=== PATIENT | female | born 1975 | race Caucasian/White ===

== ENCOUNTER 2016-07-06 12:24 | Day surgery (SDC) | payer BC ==
[2016-07-06 13:15] VITALS: RESP 16
[2016-07-06] MEDS ORDERED: IODIXANOL 320 MG/ML 100 ML IV ONE (13:58)
--- NOTE | 2016-07-06 14:10 | IR ---
Fluoroscopic portogram([facility]). HISTORY: Device malfunction. The patient presented to the CVL with a Claudio needle within the port. Preliminary fluoroscopy demonst rated the catheter to be intact. IMPRESSION: 1. No obstruction or extravasation. See above.
[2016-07-06 14:30] VITALS: BP 112/66; PULSE 86
== END 2016-07-06 14:27 | disposition home or self-care (01) ==
LOC: CATHCVL 12:24
PROVIDERS: ATTEND Radiology Diagnostic Radiology
DX: T82.848A Pain due to vascular prosthetic devices, implants and grafts, initial encounter (principal); T82.514A Breakdown (mechanical) of infusion catheter, initial encounter; C50.311 Malignant neoplasm of lower-inner quadrant of right female breast; Z17.0 Estrogen receptor positive status [ER+]; Z90.13 Acquired absence of bilateral breasts and nipples; R19.7 Diarrhea, unspecified; R11.2 Nausea with vomiting, unspecified; E86.0 Dehydration; Z79.891 Long term (current) use of opiate analgesic; Z79.899 Other long term (current) drug therapy
CPT/HCPCS: 36598; 81025; Q9967

== ENCOUNTER → 2016-09-04 | Outpatient (CLI) | payer BC ==
--- NOTE | 2016-09-05 11:17 | ECHOF ---
Referral Reason:C50.311 breast ca Z01.818 herceptin MEASUREMENTS -------- HEIGHT: 165.1 cm WEIGHT: 52.2 kg BP: 112/72 RVIDd: 2.0 cm (< 3.3) IVSd: 1.0 cm (0.6 - 1.1) LVIDd: 3.6 cm (3.9 - 5.3) LVPWd: 0.9 cm (0.6 - 1.1) IVSs: 1.2 cm LVIDs: 2.7 cm LVPWs: 1.3 cm LA Diam: 2.2 cm (2.7 - 3.8) LAESV Index (A-L): 10.83 ml/m Ao Diam: 2.6 cm (2.0 - 3.7) AV Cusp: 1.9 cm (1.5 - 2.6) MV EXCURSION: 18.742 mm (> 18.000) MV EF SLOPE: 159 mm/s (70 - 150) EPSS: 0.7 cm MV E [place]: 1.06 m/s MV DecT: 226 ms MV A [place]: 0.53 m/s MV E/A Ratio: 1.99 RAP: 5.00 mmHg RVSP: 20.32 mmHg FINDINGS -------- Sinus rhythm. This was a technically good study. The left ventricular size is normal. Left ventricular wall thickness is normal. Overall left ventricular systolic function is normal with, an EF between 55 - 60 %. The right ventricle is normal in size and function. Normal LA size by volume 22+/-6 ml/m2. The right atrium is normal in size. Aortic valve is trileaflet and is mildly thickened. The mitral valve leaflets are mildly thickened. Mild mitral annular calcification present. Mild tricuspid regurgitation present. Right ventricular systolic pressure is normal at < 35 mmHg. Trace/mild (physiologic) pulmonic regurgitation. The aortic root, ascending aorta and aortic arch are normal. The inferior vena cava is mildly dilated. The pericardium is normal. CONCLUSIONS -------- 1. Sinus rhythm. 2. The mitral valve leaflets are mildly thickened. 3. Mild mitral annular calcification present. 4. Mild tricuspid regurgitation present. 5. Right ventricular systolic pressure is normal at < 35 mmHg. 6. Trace/mild (physiologic) pulmonic regurgitation. 7. The aortic root, ascending aorta and aortic arch are normal. 8. The inferior vena cava is mildly dilated. 9. The pericardium is normal. 10. This was a technically good study. 11. The left ventricular size is normal. 12. Left ventricular wall thickness is normal. 13. Overall left ventricular systolic function is normal with, an EF between 55 - 60 %. 14. The right ventricle is normal in size and function. 15. Normal LA size by volume 22+/-6 ml/m2. 16. The right atrium is normal in size. 17. Aortic valve is trileaflet and is mildly thickened. WIND TURBINE MACHINIST: Ginger Wilson RDCS
== END | disposition home or self-care (01) ==
LOC: RADECHMAIN 13:50
PROVIDERS: ATTEND Internal Medicine Hematology & Oncology
DX: Z01.818 Encounter for other preprocedural examination (principal); I05.8 Other rheumatic mitral valve diseases; I35.8 Other nonrheumatic aortic valve disorders; I07.1 Rheumatic tricuspid insufficiency; I37.1 Nonrheumatic pulmonary valve insufficiency; C50.919 Malignant neoplasm of unspecified site of unspecified female breast
CPT/HCPCS: 93306

== ENCOUNTER → 2017-02-01 | Outpatient (CLI) | payer BC ==
--- NOTE | 2017-02-02 12:00 | ECHOF ---
Referral Reason:Chemo Exposure Z01.818 Breast CA C50.311 MEASUREMENTS -------- HEIGHT: 165.1 cm WEIGHT: 50.8 kg BP: RVIDd: 2.3 cm (< 3.3) IVSd: 0.9 cm (0.6 - 1.1) LVIDd: 4.0 cm (3.9 - 5.3) LVPWd: 1.0 cm (0.6 - 1.1) IVSs: 1.2 cm LVIDs: 3.1 cm LVPWs: 1.1 cm LAESV Index (A-L): 10.20 ml/m Ao Diam: 2.5 cm (2.0 - 3.7) AV Cusp: 1.8 cm (1.5 - 2.6) LA Diam: 2.1 cm (2.7 - 3.8) MV EXCURSION: 12.972 mm (> 18.000) MV EF SLOPE: 128 mm/s (70 - 150) EPSS: 0.5 cm MV E [place]: 0.82 m/s MV DecT: 289 ms MV A [place]: 0.62 m/s MV E/A Ratio: 1.33 RAP: 5.00 mmHg RVSP: 9.49 mmHg FINDINGS -------- Sinus rhythm. This was a technically adequate study. The left ventricular size is normal. Left ventricular wall thickness is normal. Overall left vent ricular systolic function is low-normal with, an EF between 50 - 55 %. The right ventricle is normal in size and function. Normal LA size by volume 22+/-6 ml/m2. The right atrium is normal in size. The aortic valve is trileaflet, and appears structurally normal. No aortic stenosis or regurgitation. Mild mitral annular calcification present. There is trace to mild mitral regurgitation. Trace tricuspid regurgitation present. Right ventricular systolic pressure is normal at < 35 mmHg. There is no evidence of pulmonary hypertension. The pulmonic valve was not well visualized. The aortic root size is normal. Normal inferior vena cava with normal inspiratory collapse consistent with estimated right atrial pre ssure of 5 mmHg. The pericardium is normal. There is no pericardial effusion. CONCLUSIONS -------- 1. Sinus rhythm. 2. This was a technically adequate study. 3. The left ventricular size is normal. 4. Left ventricular wall thickness is normal. 5. Overall left ventricular systolic function is low-normal with, an EF between 50 - 55 %. 6. Normal LA size by volume 22+/-6 ml/m2. 7. The aortic valve is trileaflet, and appears structurally normal. No aortic stenosis or regurgitati on. 8. Mild mitral annular calcification present. 9. There is trace to mild mitral regurgitation. 10. Trace tricuspid regurgitation present. 11. Right ventricular systolic pressure is normal at < 35 mmHg. 12. There is no evidence of pulmonary hypertension. 13. The pulmonic valve was not well visualized. 14. The aortic root size is normal. 15. There is no pericardial effusion. ETHICS MANAGER: Nestor Sampson RDCS
== END ==
LOC: RADECHMAIN 12:58
PROVIDERS: ATTEND Internal Medicine Hematology & Oncology
DX: Z01.818 Encounter for other preprocedural examination (principal); C50.311 Malignant neoplasm of lower-inner quadrant of right female breast
CPT/HCPCS: 93306

== ENCOUNTER → 2018-06-10 | Outpatient (CLI) | payer BC ==
--- NOTE | 2018-06-10 16:44 | US ---
EXAMINATION TYPE: US venous doppler duplex LE RT DATE OF EXAM: 06/10/2018 4:18 PM COMPARISON: NONE CLINICAL HISTORY: Rt Leg Pain M79.604. Pain right lower extremity x 2 weeks. No Hx of DVT. SIDE PERFORMED: Right TECHNIQUE: The lower extremity deep venous system is examined utilizing real time linear array sonog karyna with graded compression, doppler sonography and color-flow sonography. VESSELS IMAGED: External Iliac Vein (EIV) Common Femoral Vein Deep Femoral Vein Greater Saphenous Vein * Femoral Vein Popliteal Vein Small Saphenous Vein * Proximal Calf Veins (* superficial vessels) Grayscale, color doppler, spectral doppler imaging performed of the deep veins of the right lower ext remity. There is normal flow, compressibility, vascular waveforms. Right Leg: No evidence of DVT in the right lower extremity. IMPRESSION: No sonographic evidence of deep venous thrombosis within the right lower extremity.
--- NOTE | 2018-06-11 07:26 | XR ---
EXAMINATION TYPE: XR chest 2V DATE OF EXAM: 06/10/2018 COMPARISON: NONE HISTORY: Cough for 2 months TECHNIQUE: Frontal and lateral views of the chest are obtained. FINDINGS: There is no focal air space opacity, pleural effusion, or pneumothorax seen. The cardiac silhouette size is within normal limits. The osseous structures are intact. IMPRESSION: No acute cardiopulmonary process.
== END ==
LOC: RADUSWWP 15:37
PROVIDERS: ATTEND Physician Assistant
DX: M79.604 Pain in right leg (principal); R05 Cough
CPT/HCPCS: 71046

== ENCOUNTER → 2018-09-09 | Outpatient (CLI) | payer BC ==
--- NOTE | 2018-09-09 23:02 | MR ---
MRI CERVICAL SPINE: CLINICAL HISTORY: Breast cancer and radiculopathy per order. Headache with neck pain causing pain and numbness into right arm and fingers for 1 year per patient. TECHNIQUE: Multiplanar, multisequence imaging of the cervical spine is performed without and with IV contrast, 6 cc of gadolinium was given intravenously. COMPARISON: None. FINDINGS: Sagittal images of the cervical spine show the craniocervical junction to appear within nor mal limits. The cervical and upper thoracic spinal cord is normal in course, caliber, and signal. V ertebral alignment is anatomic. The vertebral body and intravertebral disk heights are normal. The bone marrow signal intensity is within normal limits. No suspicious postcontrast enhancement is seen. Axial images at C2-C3 level are felt within normal limits. Axial images at C3-C4 level show right foraminal spur disc complex causing asymmetric mild to moderat e right-sided neural foraminal narrowing axial image 36 confirm sagittal image 10. There is slightly lobulated posterior disc protrusion mildly facing anterolateral thecal sac. Axial images at C4-C5 level show uncovertebral facet degenerative changes causing mild to minimal lef t-sided neural foraminal narrowing. Axial images at C5-C6 level show tiny central disc protrusion mildly effacing the anterior thecal sac . Axial images at C6-C7 level show left paracentral disc protrusion effacing the anterior thecal sac, b ilateral neural foramina are patent. Axial images at C7-T1 level are felt within normal limits. IMPRESSION: Some mild multilevel degenerative changes as seen above. No suspicious enhancement or chicho picious osseous lesions to suggest metastatic malignancy.
== END | disposition home or self-care (01) ==
LOC: RADMRIMAIN 20:36
PROVIDERS: ATTEND Internal Medicine Hematology & Oncology
DX: M47.22 Other spondylosis with radiculopathy, cervical region (principal); C50.311 Malignant neoplasm of lower-inner quadrant of right female breast
CPT/HCPCS: 72156; A9585

== ENCOUNTER → 2020-11-23 | Outpatient (CLI) | payer OTHER ==
--- NOTE | 2020-11-23 11:44 | USB ---
Reason for exam: clinical finding. History: Patient has history of breast cancer at age 40. Malignant MG stereo VAD BX RT of the right breast, January 13, 2016. Taking hormonal contraceptives for 10 years beginning at age 30. Physical Findings: Nurse Summary: left palpable, ridge on implant (nurse dw). US Breast Limited BILAT Technologist: Amie Chavarria Left limited breast ultrasound including focal area of concern, retroareolar and axilla demonstrates a 1.5 x 1.5 x 0.5cm oval, solid, hypoechoic lesion at 1 o'clock. Right complete breast ultrasound includes all four quadrants, the retroareolar region and axilla. Finding demonstrates no cystic or solid lesion seen. These results were verbally communicated with the patient and result sheet given to the patient on 11/23/20. ASSESSMENT: Suspicious, BI-RAD 4 RECOMMENDATION: Surgical consultation of the left breast. Manage on a clinical basis with regard to nipple discharge. Biopsy recommended buy surgical palpation.
== END | disposition home or self-care (01) ==
LOC: RADUSWWP 07:36
PROVIDERS: ATTEND Internal Medicine Hematology & Oncology
DX: N64.89 Other specified disorders of breast (principal); Z79.3 Long term (current) use of hormonal contraceptives; Z85.3 Personal history of malignant neoplasm of breast

== ENCOUNTER 2020-12-31 06:33 | Day surgery (SDC) | payer OTHER ==
[~2020-12-31 06:33] MED LIST: ACETAMINOPHEN TAB 500 MG TAB PO PRN; DEXAMETHASONE SOD PHOSPHATE 4 MG/ML 1 ML VIAL IV ONE; HEPARIN SODIUM,PORCINE/PF 5,000 UNIT/0.5 ML SYRINGE SQ PRN; LACTATED RINGERS 1,000 ML IV SCH; MIDAZOLAM 2 MG/2 ML VIAL IV PRN; ONDANSETRON 4 MG/2 ML VIAL IVP ONE; SCOPOLAMINE 1.5MG/72HR PATCH TRANSDERM ONE
[2020-12-31] MEDS ORDERED: HYDROmorphone 0.5 MG/0.5 ML SYRINGE IVP PRN (07:00)
[2020-12-31 07:15] VITALS: RESP 16
[2020-12-31] MEDS ORDERED: LIDOCAINE 1% (10MG/ML) FOR IV START INTRADERMA ONE (07:21)
[2020-12-31] MEDS ORDERED: ePHEDrine SULFATE/0.9% NACL/PF 50 MG/5 ML SYRINGE IV ONE (07:45)
[2020-12-31] MEDS ORDERED: PROPOFOL 10 MG/ML 20 ML VIAL IV ONE (07:45)
[2020-12-31] MEDS ORDERED: MIDAZOLAM 2 MG/2 ML VIAL ONE (07:45)
[2020-12-31] MEDS ORDERED: LIDOCAINE 1% INJ 10MG/ML (20 ML MDV) ONE (07:45)
[2020-12-31] MEDS ORDERED: fentaNYL (PF) 50 MCG/ML 2 ML AMP ONE (07:45)
[2020-12-31] MEDS ORDERED: BUPIVACAINE (PF) 0.25% 30 ML VIAL SQ ONE ×2 (08:09→08:21)
[2020-12-31] MEDS ORDERED: ACETAMINOPHEN TAB 325 MG TAB PO PRN (08:32)
[2020-12-31] MEDS ORDERED: NALOXONE 0.4 MG/ML 1 ML VIAL IV PRN (08:32)
--- NOTE | 2020-12-31 08:35 | P.OP ---
Date of Procedure: 12/31/20 Procedure(s) Performed: PREOPERATIVE DIAGNOSIS: Left breast mass POSTOPERATIVE DIAGNOSIS: Same PROCEDURE: Biopsy left breast mass SURGEON: Calin EBL: 2 mL ANESTHESIA: Gen. COMPLICATIONS: None OPERATIVE PROCEDURE: Patient placed in the supine position. The patient was placed under general anesthesia. The left breast was prepped and draped sterilely. The patient had a palpable mass at 2 to 3:00. A horizontal incision was made overlying the palpable mass. Dissection through the subcutaneous tissues took place. The mass was carefully dissected using both sharp dissection and blunt dissection. The mass appeared to be a fold in the capsule surrounding her implant. As we partially excised this tissue I could see that the implant was fully intact beneath this capsule. This specimen was sent to pathology for close examination. The defect in the fold was closed using a running 3-0 Vicryl stitch. The subcutaneous tissues were closed using 3-0 Vicryl sutures. The skin was closed using a running 4-0 Monocryl suture. Skin glue was applied. Sterile dressings were applied. DISPOSITION: Stable to recovery room
[2020-12-31 08:42] VITALS: TEMP 98
[2020-12-31] MEDS ORDERED: LACTATED RINGERS 1,000 ML IV ONE (08:46)
[2020-12-31 09:44] VITALS: BP 122/83; PULSE 72
== END 2020-12-31 09:58 | disposition home or self-care (01) ==
LOC: OR 06:33
PROVIDERS: ATTEND Surgery
DX: N63.20 Unspecified lump in the left breast, unspecified quadrant (principal); Z90.13 Acquired absence of bilateral breasts and nipples; Z98.890 Other specified postprocedural states; Z80.9 Family history of malignant neoplasm, unspecified; Z79.810 Long term (current) use of selective estrogen receptor modulators (SERMs)
CPT/HCPCS: 81025; 88305; 19120; J2250; J1100; J0690; J2405; J2001; J3010; J2704; J1644

== ENCOUNTER 2021-07-13 10:20 | Day surgery (SDC) | payer OTHER ==
[2021-07-11 10:37] VITALS: BMI 20.1
[~2021-07-13 10:20] MED LIST changes: -ACETAMINOPHEN TAB 500 MG TAB PO PRN; -DEXAMETHASONE SOD PHOSPHATE 4 MG/ML 1 ML VIAL IV ONE; -HEPARIN SODIUM,PORCINE/PF 5,000 UNIT/0.5 ML SYRINGE SQ PRN; -MIDAZOLAM 2 MG/2 ML VIAL IV PRN; -ONDANSETRON 4 MG/2 ML VIAL IVP ONE; -SCOPOLAMINE 1.5MG/72HR PATCH TRANSDERM ONE
[2021-07-13 10:55] VITALS: RESP 16; TEMP 97.6
[2021-07-13] MEDS ORDERED: LIDOCAINE 1% (10MG/ML) FOR IV START INTRADERMA ONE (11:02)
[2021-07-13] MEDS ORDERED: PROPOFOL 10 MG/ML 20 ML VIAL IV ONE (11:41)
[2021-07-13] MEDS ORDERED: LIDOCAINE 1% INJ 10MG/ML (20 ML MDV) ONE (11:41)
--- NOTE | 2021-07-13 11:50 | P.PCN ---
Date of Procedure: 07/13/21 Procedure(s) Performed: BRIEF HISTORY: Patient is a 45-year-old, pleasant, female scheduled for an upper endoscopy as a part of evaluation of chronic epigastric pain for the last 1 month duration. She was recently started on omeprazole 20 mg daily and symptoms are gradually improving. She denies any prior history of peptic ulcer disease or recent NSAID use. PROCEDURE PERFORMED: Esophagogastroduodenoscopy. With biopsy PREOPERATIVE DIAGNOSIS: Chronic epigastric pain. IV sedation per anesthesia. PROCEDURE: After informed consent was obtained, the patient was brought into the endoscopy unit. IV sedation was administered by Anesthesia under continuous monitoring. Initially the Olympus GIF-140 video endoscope was inserted into the mouth. Esophagus intubated without any difficulty. It was gradually advanced into the stomach and duodenum and carefully examined. The bulb and the second part of the duodenum appeared normal. His were done from the duodenum to rule out celiac disease The scope at this time was withdrawn to the stomach, adequately insufflated with air, and upon careful examination, mucosa of the antrum had mild gastritis and biopsies were done from this area. The, body, cardia and the fundus appeared normal. The scope was then withdrawn into the esophagus. The GE junction was located at 39 cm from the incisors. Small hiatal hernia noted. The esophagus appeared normal. There were no erosions or ulcerations seen and the patient tolerated the procedure well. IMPRESSION: 1. Mild antral gastritis. 2. Normal-appearing esophagus with no evidence of esophagitis. 3. Small hiatal hernia. RECOMMENDATIONS: The findings of this examination were discussed with the pat ient as well as a family. She was advised to follow with the biopsy. In the meantime she will continue with omeprazole 20 mg daily and follow antireflux measures.
[2021-07-13 12:17] VITALS: BP 128/80; PULSE 62
== END 2021-07-13 12:38 | disposition home or self-care (01) ==
LOC: ORWHC2ENDO 10:20
PROVIDERS: ATTEND Internal Medicine Gastroenterology
DX: K29.50 Unspecified chronic gastritis without bleeding (principal); K44.9 Diaphragmatic hernia without obstruction or gangrene; J45.909 Unspecified asthma, uncomplicated; R13.10 Dysphagia, unspecified; Z85.3 Personal history of malignant neoplasm of breast; Z92.3 Personal history of irradiation; Z92.21 Personal history of antineoplastic chemotherapy; Z90.13 Acquired absence of bilateral breasts and nipples; Z79.899 Other long term (current) drug therapy
CPT/HCPCS: 81025; 88305; 43239; J2001; J2704

== ENCOUNTER → 2021-07-15 | Outpatient (CLI) | payer OTHER ==
--- NOTE | 2021-07-16 03:57 | MR ---
EXAMINATION TYPE: MR MRCP DATE OF EXAM: 07/15/2021 COMPARISON: None HISTORY: Abdominal pain Multiplanar multi echo imaging of the abdomen without contrast. There are MRCP images. Liver appears intact. No focal defect. Gallbladder appears normal. There is no pancreatic mass. Pancr eatic duct appears normal. Spleen is intact. Stomach is intact. There is no sign of pleural effusion. Heart size is normal. No sign of pericardial effusion. The kidneys have normal size and contour. No hydronephrosis. There is no evidence of adrenal mass. Co mmon bile duct appears normal. No dilation of the intrahepatic bile ducts. IMPRESSION: Negative MRCP exam. No evidence of common duct stone. No dilated ducts. Normal gallbladder.
== END | disposition home or self-care (01) ==
LOC: RADMRIMAIN 07:40
PROVIDERS: ATTEND Internal Medicine Hematology & Oncology
DX: R10.9 Unspecified abdominal pain (principal)
CPT/HCPCS: 74181

== ENCOUNTER → 2021-07-15 | Outpatient (CLI) | payer OTHER ==
--- NOTE | 2021-07-17 11:36 | CA ---
Transthoracic Echo Report Name: Savannah Maciel Age: 45 Gender: F : 1975 Exam Date: 07/15/2021 11:32 Exam Location: [facility] Ht (in): 65 Wt (lb): 121 Ordering Physician: Catrachito Romero MD Attending/Referring Phys: Polisher Hand Veronica Kim RDCS Procedure CPT: Indications: Z01.818 chemo monitoring Cardiac Hx: Technical Quality: Technically difficult study Contrast 1: Total Dose (mL): Contrast 2: Total Dose (mL): MEASUREMENTS (Male / Female) Normal Values 2D ECHO LV Diastolic Diameter PLAX 3.5 cm 4.2 - 5.9 / 3.9 - 5.3 cm LV Systolic Diameter PLAX 2.6 cm IVS Diastolic Thickness 0.8 cm 0.6 - 1.0 / 0.6 - 0.9 cm LVPW Diastolic Thickness 1.0 cm 0.6 - 1.0 / 0.6 - 0.9 cm LV Relative Wall Thickness 0.5 RV Internal Dim ED PLAX 2.4 cm M-MODE Aortic Root Diameter MM 2.7 cm LA Systolic Diameter MM 1.7 cm LA Ao Ratio MM 0.6 MV E Point Septal Separation 0.5 cm AV Cusp Separation MM 1.8 cm DOPPLER AV Peak Velocity 93.9 cm/s AV Peak Gradient 3.5 mmHg MV Area PHT 2.9 cm MR Peak Velocity 226.7 cm/s MR Peak Gradient 20.6 mmHg Mitral E Point Velocity 69.7 cm/s Mitral A Point Velocity 60.2 cm/s Mitral E to A Ratio 1.2 MV Deceleration Time 262.7 ms MV E' Velocity 11.1 cm/s Mitral E to MV E' Ratio 6.3 TR Peak Velocity 90.4 cm/s TR Peak Gradient 3.3 mmHg Right Ventricular Systolic Press 8.3 mmHg FINDINGS Left Ventricle Normal left ventricular size, wall thickness, systolic function with no obvious regional wall motion abnormalities. Normal left ventricular diastolic filling pattern for age. The ejection fraction is visually estimated at 55-60 %. Right Ventricle The right ventricle is normal in size and function. Right Atrium The right atrium is normal in size. Left Atrium The left atrium is normal in size. Mitral Valve Structurally normal mitral valve without significant stenosis or prolapse. There is a trace mitral regurgitation. Aortic Valve Structurally normal aortic valve without significant sclerosis or stenosis. There is no aortic regurgitation. Tricuspid Valve Structurally normal tricuspid valve without significant stenosis. Pulmonary artery systolic pressure is normal. Trace tricuspid regurgitation. Pulmonic Valve Structurally normal pulmonic valve without significant stenosis. There is no pulmonic regurgitation. Pericardium Normal pericardium without effusion. Aorta Normal aortic root dimension. CONCLUSIONS Normal LV size and systolic function No structural valvular abnormalities Previewed by: Dr. Luis Carlos Brown MD (Electronically Signed) Final Date: 17 July 2021 11:35
== END | disposition home or self-care (01) ==
LOC: RADECHMAIN 07:37
PROVIDERS: ATTEND Internal Medicine Hematology & Oncology
DX: Z01.818 Encounter for other preprocedural examination (principal)
CPT/HCPCS: 93306

== ENCOUNTER → 2022-01-24 | Outpatient (CLI) | payer OTHER ==
--- NOTE | 2022-01-24 09:28 | USB ---
Reason for Exam: Follow-up at short interval from prior study. Patient History: Menarche at age 15. First Full-Term at age 24. Breast cancer, age 40. Currently using Hormonal Contraceptives, beginning at age 30 for 10 years. 01/13/2016, Malignant Core Biopsy on the right side. Technique: Method: Targeted. Prior Study Comparison: 12/23/2015 Bilateral Screening Mammogram, [facility]. 12/30/2015 Right Diagnostic Mammogram, [facility]. Findings: The upper outer quadrant of the left breast, the axilla of the left breast and the retroareolar of the left breast were scanned. No special solid or cystic masses are identified. By history, the previous left 1:00 BC position palpable abnormalities been surgically removed. Smaller residual may remain present.. Overall Assessment: Benign, BI-RAD 2 Management: Clinical Management of both breasts. A clinical breast exam by your physician is recommended on an annual basis and results should be correlated with mammographic findings. This exam should not preclude additional follow-up of suspicious palpable abnormalities. ??Results were given to the patient verbally at the time of exam. Electronically signed and approved by: Georgi Tipton D.O. Radiologis
== END | disposition home or self-care (01) ==
LOC: RADUSWWP 08:49
PROVIDERS: ATTEND Internal Medicine Hematology & Oncology
DX: C50.311 Malignant neoplasm of lower-inner quadrant of right female breast (principal); E86.0 Dehydration; R19.7 Diarrhea, unspecified; R11.2 Nausea with vomiting, unspecified

== ENCOUNTER → 2023-11-30 | Outpatient (CLI) | payer OTHER ==
--- NOTE | 2023-11-30 19:23 | BD ---
EXAMINATION TYPE: Axial Bone Density DATE OF EXAM: 11/30/2023 CLINICAL HISTORY: 48 years old Female. 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 History of Fracture in Adulthood: no Secondary Osteoporosis: 1. Type 1 Diabetes: no 2. Hyperthyroidism: no 3. Menopause before 45: yes 4. Malnutrition: no 5. Chronic liver disease: no Rheumatoid Arthritis: no Current Tobacco Use: no RISK FACTORS HISTORY OF: Hip Fracture (Right/Left): no Spine Fracture: no History of Wrist Fracture: yes rt wrist Surgery to Spine/Hip(right/left)/Wrist (right/left): no MEDICATIONS: Thyroid Medications: no Osteoporosis Medications: no Breast Ca. age 40 with chemo and radiation EXAM MEASUREMENTS: Bone mineral densitometry was performed using the [employer] System. Bone mineral density as measured about the Lumbar spine is: ----- L1-L4(G/cm2): 1.085 T Score Values are as follows: ----- L1: -1.2 ----- L2: -1.6 ----- L3: -0.4 ----- L4: -0.4 ----- L1-L4: -0.8 Z Score Values are as follows: ----- L1: -0.6 ----- L2: -1.1 ----- L3: 0.1 ----- L4: 0.1 ----- L1-L4: -0.3 Baseline Study Bone mineral density about the R hip (g/cm2): 0.878 Bone mineral density about the L hip (g/cm2): 1.004 T Score values are as follows: -----R Neck: -0.9 -----L Neck: 0.3 -----R Total: -1.0 -----L Total: 0.0 Z Score values are as follows: -----R Neck: -0.1 -----L Neck: 1.2 -----R Total: -0.4 -----L Total: 0.6 Baseline Study FRAX%s: The graph provided illustrates a 3.2% chance for a major osteoporotic fx and a 0.2% chance fo r the hips probability for fx in 10 years time. IMPRESSION: Normal (Values between +1 and -1 indicate normal bone mass). Consider repeating this study in 5 year s or sooner if there is some new clinical indication. NOTE: T-SCORE=SD OF THE YOUNG ADULT MEAN.
== END | disposition home or self-care (01) ==
LOC: RADBDWWP 16:27
PROVIDERS: ATTEND Obstetrics & Gynecology
DX: Z79.810 Long term (current) use of selective estrogen receptor modulators (SERMs)
CPT/HCPCS: 77080

== ENCOUNTER 2023-12-21 10:03 | Emergency (ER) | payer OTHER ==
[2023-12-21] MEDS: KETOROLAC 15 MG/ML 1 ML VIAL IVP STA ×2 (11:11→12:16)
[2023-12-21] MEDS: ONDANSETRON 4 MG/2 ML VIAL IVP STA (11:11)
[2023-12-21] MEDS: HYDROmorphone 0.5 MG/0.5 ML SYRINGE IVP STA ×2 (11:11→12:20)
[2023-12-21] MEDS: SODIUM CHLORIDE 0.9% 500 ML 500 ML IV STA (11:13)
[2023-12-21] MEDS: SODIUM CHLORIDE 0.9% 1,000 ML IV STA (11:24)
[2023-12-21 11:44] LABS: Basophils % (A) 0 %; Eosinophils # (A) 0.1 k/uL (0-0.7); Eosinophils % (A) 1 %; HCT 42.5 % (34.0-46.0); HGB 14.4 gm/dL (11.4-16.0); Lymphocytes # (A) 1.4 k/uL (1.0-4.8); Lymphocytes % (A) 17 %; MCH 31.4 pg (25.0-35.0); MCHC 33.8 g/dL (31.0-37.0); MCV 92.9 fL (80.0-100.0); Mean Platelet Volume 7.5; Monocytes # (A) 0.3 k/uL (0-1.0); Monocytes % (A) 4 %; Neutrophils # (A) 6.3 k/uL (1.3-7.7); Neutrophils % (A) 77 %; Platelet Count 293 k/uL (150-450); RBC 4.58 m/uL (3.80-5.40); RDW 12.6 % (11.5-15.5); WBC 8.2 k/uL (3.8-10.6)
[2023-12-21 11:49] LABS: Appearance,Urine Cloudy (Clear); Bacteria,Urine Rare /hpf; Bilirubin,Urine Negative (Negative); Blood,Urine Negative (Negative); Color,Urine Colorless; Glucose,Urine (UA) Negative (Negative); Ketones,Urine 2+ (Negative); Leukocyte Esterase,Urine Negative (Negative); Mucus,Urine Rare /hpf; Nitrite,Urine Negative (Negative); PH, Urine 7.5 (5.0-8.0); Protein,Urine Negative (Negative); Specific Gravity,Urine 1.018 (1.001-1.035); Squamous Epithelial Cell,Urine 1 /hpf (0-4); Urobilinogen,Urine <2.0 mg/dL (<2.0); WBC,Urine 3 /hpf (0-5)
--- NOTE | 2023-12-21 11:57 | CT ---
EXAMINATION TYPE: CT abdomen pelvis wo con CT DLP: 333.1 mGycm, Automated exposure control for dose reduction was used. DATE OF EXAM: 12/21/2023 11:47 AM COMPARISON: MR MRCP 07/15/2021 CLINICAL INDICATION:Female, 48 years old with history of right flank pain; Right flank pain TECHNIQUE: Standard CT of the abdomen and pelvis without IV or oral contrast. Lack of IV or oral co ntrast limits evaluation of solid and hollow organ viscera. Coronal and sagittal reformats were perfo rmed. FINDINGS: LOWER CHEST: The lung bases are clear. Partial visualization of bilateral breast prosthesis. ABDOMEN LIVER: Unremarkable noncontrast appearance. GALLBLADDER AND BILE DUCTS: Unremarkable noncontrast appearance. PANCREAS: Unremarkable noncontrast appearance. SPLEEN: Unremarkable noncontrast appearance. ADRENAL GLANDS: Unremarkable noncontrast appearance.. KIDNEYS AND URETERS: No left hydronephrosis. No left renal calculi. Moderate right hydroureteronephro sis with an obstructing 6 mm calculus ureterovesical junction (series 201, image 71). Right perinephr ic stranding identified. PELVIS BLADDER: Incompletely distended but grossly unremarkable. REPRODUCTIVE: Unremarkable noncontrast appearance. ABDOMEN & PELVIS STOMACH AND BOWEL: Stomach and duodenum are unremarkable. No focal bowel wall thickening or surroundi ng inflammatory changes. No evidence of bowel obstruction. PERITONEUM: No evidence of pneumoperitoneum or free fluid. VASCULATURE: No evidence of aortic aneurysm. Pelvic phleboliths. MUSCULOSKELETAL: No acute osseous abnormalities LYMPH NODES: No gross evidence for lymphadenopathy. SOFT TISSUE/ABDOMINAL WALL: Unremarkable IMPRESSION: Moderate right hydroureteronephrosis with an obstructing 6 mm calculus at the ureterovesical junction . [facility], , 12/21/2023 11:55 AM
[2023-12-21 12:05] LABS: ALT 24 U/L (4-34); AST 34 U/L (14-36); African American GFR (CKD) >90 (>60 ml/min/1.73 sqM); Albumin 5.1 g/dL (3.5-5.0); Alkaline Phosphatase 83 U/L (38-126); Anion Gap 14 mmol/L; Blood Urea Nitrogen 24 mg/dL (7-17); Calcium 10.2 mg/dL (8.4-10.2); Carbon Dioxide 22 mmol/L (22-30); Chloride 103 mmol/L (98-107); Glucose 150 mg/dL (74-99); Lipase 55 U/L (23-300); Non-African American GFR(CKD) 81 (>60 ml/min/1.73 sqM); Sodium 139 mmol/L (137-145); Total Bilirubin 0.7 mg/dL (0.2-1.3)
[2023-12-21] MEDS: HYDROcodone/APAP 7.5-325MG 1 EACH TAB PO ONE (13:17)
--- NOTE | 2023-12-21 13:35 | ED ---
Abdominal Pain HPI - General Chief Complaint: Abdominal Pain Stated Complaint: Abd pain Time Seen by Provider: 12/21/23 10:32 Source: patient, RN notes reviewed Mode of arrival: ambulatory Limitations: no limitations - History of Present Illness Initial Comments: 48-year-old female presents emergency department complaining of right flank pain. Patient states sudden onset of pain states severe pain. She states 20 years ago she had a kidney stone. States nothing makes pain feel better or worse at this time. She admits nausea vomiting states that she has had some urinary frequency and pressure she initially thought she had a UTI went to urgent care and sent here for evaluation. She reports no other associated symptoms denies any change in bowel habits. - Related Data Home Medications Medication Instructions Recorded Confirmed Tamoxifen [Nolvadex] 20 mg PO DAILY 11/02/16 07/11/21 Albuterol Inhaler [Ventolin Hfa 1 puff INHALATION DIRECTED PRN 07/11/21 07/13/21 Inhaler] Omeprazole 40 mg PO BID 07/11/21 07/13/21 Vitamin B-12 (Unknown Dose) 1 tab PO DAILY 07/11/21 Vitamin D3 (Unknown Dose) 1 tab PO DAILY 07/11/21 Previous Rx's Medication Instructions Recorded HYDROcodone/APAP 7.5-325MG [Raymond 1 tab PO Q6HR PRN 3 Days #12 tab 12/21/23 7.5-325] Ketorolac [Toradol] 10 mg PO Q8HR #15 tab 12/21/23 Ondansetron Odt [Zofran Odt] 4 mg PO Q8HR PRN #10 tab 12/21/23 Allergies Allergy/AdvReac Type Severity Reaction Status Date / Time No Known Allergies Allergy Verified 12/21/23 10:15 Review of Systems ROS Statement: Those systems with pertinent positive or pertinent negative responses have been documented in the HPI. ROS Other: All systems not noted in ROS Statement are negative. Past Medical History Past Medical History: Cancer Additional Past Medical History / Comment(s): r breast cancer History of Any Multi-Drug Resistant Organisms: None Reported Past Surgical History: Breast Surgery, Uterine Ablation Additional Past Surgical History / Comment(s): leanna mastectomy january 2016 with reconstruction and implants, rt axillary lymph nodes removed Past Anesthesia/Blood Transfusion Reactions: No Reported Reaction Past Psychological History: No Psychological Hx Reported Smoking Status: Never smoker Past Alcohol Use History: Occasional - Past Family History Mother Family Medical History: No Reported History General Exam Limitations: no limitations General appearance: alert, in no apparent distress Head exam: Present: atraumatic, normocephalic, normal inspection Neck exam: Present: normal inspection. Absent: tenderness, meningismus, lymphadenopathy Respiratory exam: Present: normal lung sounds bilaterally. Absent: respiratory distress, wheezes, rales, rhonchi, stridor Cardiovascular Exam: Present: regular rate, normal rhythm, normal heart sounds. Absent: systolic murmur, diastolic murmur, rubs, gallop, clicks GI/Abdominal exam: Present: soft, tenderness, normal bowel sounds. Absent: distended, guarding, rebound, rigid Back exam: Present: CVA tenderness (R). Absent: CVA tenderness (L) Neurological exam: Present: alert Course Vital Signs 12/21/23 12/21/23 12/21/23 10:12 11:30 12:15 Temperature 97.8 F 97.7 F 97.8 F Pulse Rate 66 60 72 Respiratory 18 22 18 Rate Blood Pressure 151/106 187/112 188/110 O2 Sat by Pulse 100 100 99 Oximetry 12/21/23 12/21/23 13:06 14:06 Temperature 97.6 F Pulse Rate 64 93 Respiratory 20 16 Rate Blood Pressure 175/104 135/81 O2 Sat by Pulse 97 100 Oximetry Medical Decision Making - Medical Decision Making Was pt. sent in by a medical professional or institution ([facility], [facility] [employer], urgent care, hospital, or senior care...) When possible be specific @ -No Did you speak to anyone other than the patient for history (EMS, parent, family, police, friend...)? What history was obtained from this source @ -No Did you review nursing and triage notes (agree or disagree)? Why? @ -I reviewed and agree with nursing and triage notes Were old charts reviewed (outside hosp., previous admission, EMS record, old EKG, old radiological studies, urgent care reports/EKG's, senior care records)? Report findings @ -No old charts were reviewed Differential Diagnosis (chest pain, altered mental status, abdominal pain women, abdominal pain men, vaginal bleeding, weakness, fever, dyspnea, syncope, headache, dizziness, GI bleed, back pain, seizure, CVA, palpatations, mental health, musculoskeletal)? @ -Differential Abdominal Pain Women: Appendicitis, Cholecystitis, diverticulosis, ischemic bowel, pancreatitis, hepatitis, UTI, gastroenteritis, AAA, incarcerated hernia, bowel obstruction, constipation, inflammatory bowel, hepatitis, peptic ulcer disease, splenic infarction, perforated viscus, vulvitis, ovarian torsion, PID, kidney stone, placenta abruption, this is not meant to be an all-inclusive list EKG interpreted by me (3pts min.). @ -None X-rays interpreted by me (1pt min.). @ -None done CT interpreted by me (1pt min.). @ -CT abdomen pelvis showing evidence of 6 mm distal ureteral calculus U/S interpreted by me (1pt. min.). @ -None done What testing was considered but not performed or refused? (CT, X-rays, U/S, labs)? Why? @ -None What meds were considered but not given or refused? Why? @ -None Did you discuss the management of the patient with other professionals (professionals i.e. , PA, W[employer] PROOFER, lab, RT, psych nurse, medical social consultant, surgery nurse, teacher, credit administration officer, classification case manager)? Give summary @ -No Was smoking cessation discussed for >3mins.? @ -No Was critical care preformed (if so, how long)? @ -No Were there social determinants of health that impacted care today? How? (Homelessness, low income, unemployed, alcoholism, drug addiction, transportation, low edu. Level, literacy, decrease access to med. care, fdc, rehab)? @ -No Was there de-escalation of care discussed even if they declined (Discuss DNR or withdrawal of care, Hospice)? DNR status @ -No What co-morbidities impacted this encounter? (DM, HTN, Smoking, COPD, CAD, Cancer, CVA, ARF, Chemo, Hep., AIDS, mental health diagnosis, sleep apnea, morbid obesity)? @ -None Was patient admitted / discharged? Hospital course, mention meds given and route, prescriptions, significant lab abnormalities, going to OR and other pe rtinent info. @ -Discharge patient pain is improved patient was observed for several hours part pain is calibrated with oral intake and oral meds. Patient is discharged in stable condition she was offered admission patient declines and states will return if symptoms worsen. Undiagnosed new problem with uncertain prognosis? @ -No Drug Therapy requiring intensive monitoring for toxicity (Heparin, Nitro, Insulin, Cardizem)? @ -No Were any procedures done? @ -No Diagnosis/symptom? @ -Right ureteral calculus Acute, or Chronic, or Acute on Chronic? @ -Acute Uncomplicated (without systemic symptoms) or Complicated (systemic symptoms)? @ -[Uncomplicated Side effects of treatment? @ -No Exacerbation, Progression, or Severe Exacerbation? @ -No Poses a threat to life or bodily function? How? (Chest pain, USA, MT, pneumonia, PE, COPD, DKA, ARF, appy, cholecystitis, CVA, Diverticulitis, Homicidal, S uicidal, threat to staff... and all critical care pts) @ -No - Lab Data Result diagrams: 12/21/23 11:10 12/21/23 11:10 Lab Results 12/21/23 12/21/23 12/21/23 Range/Units 11:10 11:10 11:10 WBC 8.2 (3.8-10.6) k/uL RBC 4.58 (3.80-5.40) m/uL Hgb 14.4 (11.4-16.0) gm/dL Hct 42.5 (34.0-46.0) % MCV 92.9 (80.0-100.0) fL MCH 31.4 (25.0-35.0) pg MCHC 33.8 (31.0-37.0) g/dL RDW 12.6 (11.5-15.5) % Plt Count 293 (150-450) k/uL MPV 7.5 Neutrophils % 77 % Lymphocytes % 17 % Monocytes % 4 % Eosinophils % 1 % Basophils % 0 % Neutrophils # 6.3 (1.3-7.7) k/uL Lymphocytes # 1.4 (1.0-4.8) k/uL Monocytes # 0.3 (0-1.0) k/uL Eosinophils # 0.1 (0-0.7) k/uL Basophils # 0.0 (0-0.2) k/uL Sodium 139 (137-145) mmol/L Potassium 4.0 (3.5-5.1) mmol/L Chloride 103 (98-107) mmol/L Carbon Dioxide 22 (22-30) mmol/L Anion Gap 14 mmol/L BUN 24 H (7-17) mg/dL Creatinine 0.86 (0.52-1.04) mg/dL Est GFR (CKD-EPI)AfAm >90 (>60 ml/min/1.73 sqM) Est GFR (CKD-EPI)NonAf 81 (>60 ml/min/1.73 sqM) Glucose 150 H (74-99) mg/dL Calcium 10.2 (8.4-10.2) mg/dL Total Bilirubin 0.7 (0.2-1.3) mg/dL AST 34 (14-36) U/L ALT 24 (4-34) U/L Alkaline Phosphatase 83 (38-126) U/L Total Protein 8.0 (6.3-8.2) g/dL Albumin 5.1 H (3.5-5.0) g/dL Lipase 55 (23-300) U/L Urine Color Colorless Urine Appearance Cloudy H (Clear) Urine pH 7.5 (5.0-8.0) Ur Specific Carmine 1.018 (1.001-1.035) Urine Protein Negative (Negative) Urine Glucose (UA) Negative (Negative) Urine Ketones 2+ H (Negative) Urine Blood Negative (Negative) Urine Nitrite Negative (Negative) Urine Bilirubin Negative (Negative) Urine Urobilinogen <2.0 (<2.0) mg/dL Ur Leukocyte Esterase Negative (Negative) Urine WBC 3 (0-5) /hpf Ur Squamous Epith Cells 1 (0-4) /hpf Urine Bacteria Rare H (None) /hpf Urine Mucus Rare H (None) /hpf Disposition Clinical Impression: Ureteral calculi Disposition: HOME SELF-CARE Condition: Stable Instructions (If sedation given, give patient instructions): Kidney Stones (ED) Additional Instructions: Please return to the Emergency Department if symptoms worsen or any other concerns. Prescriptions: HYDROcodone/APAP 7.5-325MG [Raymond 7.5-325] 1 tab PO Q6HR PRN 3 Days #12 tab PRN Reason: pain Ketorolac [Toradol] 10 mg PO Q8HR #15 tab Ondansetron Odt [Zofran Odt] 4 mg PO Q8HR PRN #10 tab PRN Reason: Nausea Is patient prescribed a controlled substance at d/c from ED?: Yes When asked, does pt state using other controlled substances?: No If prescribed controlled substance>3 days was MAPS reviewed?: Prescribed <3 Days If opioid is for acute pain is fill amount 7 days or less?: Yes If Rx opioid, was Start Talking consent form obtained?: Yes Referrals: Aakash James DO [Primary Care Provider] - 1-2 days Juni Pitt MD [STAFF PHYSICIAN] - 1-2 days Time of Disposition: 14:47
[2023-12-21] MEDS: SODIUM CHLORIDE 0.9% 1,000 ML IV ONE (13:45)
[2023-12-21 14:06] VITALS: BP 135/81; PULSE 93; RESP 16; TEMP 97.6
== END 2023-12-21 14:54 | disposition home or self-care (01) ==
LOC: EC 10:03
DX: N13.2 Hydronephrosis with renal and ureteral calculous obstruction (principal)
CPT/HCPCS: 36415; 74176; 80053; 81001; 83690; 85025; 96361; 96374; 96375; 96376; 99284

== ENCOUNTER → 2024-07-01 | Outpatient (CLI) | payer OTHER ==
--- NOTE | 2024-07-01 15:42 | US ---
EXAMINATION TYPE: US venous doppler duplex UE RT DATE OF EXAM: 07/01/2024 COMPARISON: NONE CLINICAL INDICATION: Female, 48 years old with history of M79.601 PAIN IN RIGHT ARM; pain in medial r ight arm for 2 weeks, no swelling, no h/o dvt TECHNIQUE: Grayscale, color Doppler and spectral Doppler imaging of the upper extremity. SIDE PERFORMED: Right VESSELS IMAGED: IJV Subclavian Vein Axilla Vein Brachial Vein(s) Radial Paired Veins Ulnar Paired Veins Cephalic Vein* Basilic Vein* (*superficial vessels) FINDINGS: Right Arm: Negative for DVT Grayscale, color doppler, spectral doppler imaging performed of the deep veins of the upper extremiti es. IMPRESSION: No acute deep or superficial venous thrombosis in the right upper extremity. [facility], , 07/01/2024 3:40 PM
== END | disposition home or self-care (01) ==
LOC: RADUSWWP 14:55
PROVIDERS: ATTEND Family Medicine
DX: M79.601 Pain in right arm (principal)